=== PATIENT | male | born 1990 | race Caucasian/White ===

== ENCOUNTER 2017-11-02 21:49 | Emergency (ER) | payer OTHER ==
[~2017-11-02] VITALS: Ht 167.6 cm; Wt 96.9 kg
[2017-11-02 22:00] VITALS: TEMP 36.6; Ht 167.6 cm; Wt 96.9 kg
[2017-11-02] MEDS ORDERED: IBUPROFEN 600 MG TAB PO STA (22:19)
[2017-11-02] MEDS ORDERED: ACETAMINOPHEN 500 MG TAB PO STA (22:19)
[2017-11-02] MEDS ORDERED: DIPHTHERIA/TETANUS/PERTUSSIS 0.5 ML SYR/VIAL IM. ONE (22:30)
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
[2017-11-03 00:44] VITALS: BP 124/72; PULSE 85; O2SAT 95
[2017-11-03 02:32] LABS: HEP C IGG 13 YRS+OLDER_RFLX NEG (NEG)
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
== END 2017-11-03 00:45 | disposition home or self-care (01) ==
LOC: C.EDB 21:51 → C.EDC 11-03 00:45
DX: S01.511A Laceration without foreign body of lip, initial encounter (principal); S00.81XA Abrasion of other part of head, initial encounter; S00.83XA Contusion of other part of head, initial encounter; Y04.0XXA Assault by unarmed brawl or fight, initial encounter; Y92.149 Unspecified place in prison as the place of occurrence of the external cause; Y99.0 Civilian activity done for income or pay; Z77.21 Contact with and (suspected) exposure to potentially hazardous body fluids; M25.561 Pain in right knee; M25.562 Pain in left knee; F17.200 Nicotine dependence, unspecified, uncomplicated; Z23 Encounter for immunization